=== PATIENT | male | born 1950 | race Caucasian/White ===

== ENCOUNTER 2017-07-23 20:53 | Outpatient (CLI) | payer MEDICARE | END 2017-07-23 20:54 | disposition EMS.NT | LOC: EMS 20:53 | PROVIDERS: ATTEND Surgery | DX: S06.9X1A Unspecified intracranial injury with loss of consciousness of 30 minutes or less, initial encounter (principal); Y04.2XXA Assault by strike against or bumped into by another person, initial encounter; W18.39XA Other fall on same level, initial encounter; Y92.009 Unspecified place in unspecified non-institutional (private) residence as the place of occurrence of the external cause ==

== ENCOUNTER 2017-07-24 00:46 | Emergency (ER) | payer MEDICARE ==
[2017-07-24 01:00] VITALS: BP 120/67
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
--- NOTE | 2017-07-24 01:54 | CT Preliminary Report ---
Exam: CT HEAD W/O IMPRESSION: 1. Negative CT head without contrast. [facility] SITE ID: [id number]
--- NOTE | 2017-07-24 01:55 | CT Report ---
EXAM: CT HEAD EXAM DATE: 07/24/2017 01:21 AM. CLINICAL HISTORY: Fall, head injury with LOC. COMPARISON: None. TECHNIQUE: Multiaxial CT images were obtained from the foramen magnum to the vertex. Reformats: Coron al. IV contrast: None. In accordance with CT protocol optimization, one or more of the following dose reduction techniques w ere utilized for this exam: automated exposure control, adjustment of mA and/or KV based on patient s ize, or use of iterative reconstructive technique. FINDINGS: Parenchyma: No intraparenchymal hemorrhage. No evidence of mass, midline shift, or CT findings of inf arction. Hansen-white differentiation is distinct. There is mild chronic microvascular change in the pe riventricular white matter. This is within normal limits for age. Extraaxial Spaces: Normal for age. No subdural or epidural collections identified. Ventricles: Normal in size and position. Sinuses and Orbits: Imaged paranasal sinuses, orbits, and mastoids show no significant abnormality. Bones: No evidence of fracture or calvarial defect. Other: None. IMPRESSION: 1. Negative CT head without contrast. [facility] Referring Provider Line: [phone] SITE ID: [id number]
--- NOTE | 2017-07-24 02:06 | CT Preliminary Report ---
Exam: CT CERVICAL SPINE W/O IMPRESSION: 1. No evidence of a cervical spine fracture or subluxation. 2. Moderate to severe multilevel cervical spondylosis and degenerative disk disease as detailed above . [facility] SITE ID: [id number]
--- NOTE | 2017-07-24 02:06 | CT Report ---
EXAM: CT CERVICAL SPINE WITHOUT CONTRAST DATE: 07/24/2017 01:21 AM. HISTORY: Fall, neck pain. COMPARISONS: None. TECHNIQUE: Thin-section axial images were acquired of the cervical spine without contrast. Post-proce ssing: Coronal and sagittal reformats. Other: None. In accordance with CT protocol optimization, one or more of the following dose reduction techniques w ere utilized for this exam: automated exposure control, adjustment of mA and/or KV based on patient s ize, or use of iterative reconstructive technique. FINDINGS: Alignment: No scoliosis or spondylolisthesis. Bones: There is no evidence of a cervical spine fracture. An incidental 8 mm hemangioma is noted in t he right side of the C7 vertebral body. There is no destructive bone lesion. Interspace Levels/Facets: Multilevel cervical spondylosis and degenerative disk disease as detailed dayna huynh. C1-C2: There is degenerative change at this level. Predental space is normal. No central canal stenos is. C2-C3: Disk bulge mildly narrows the central canal. There is moderate right facet hypertrophy. No sig nificant foraminal stenosis. C3-C4: Moderate to severe disk narrowing. Posterior osseous ridging and disk bulging moderately narro ws the central canal. Moderate to severe bilateral foraminal stenosis. C4-C5: Mild to moderate disk narrowing. Posterior osseous ridging and disk bulging moderately narrows the central canal. Uncovertebral facet hypertrophy causes moderate to severe right foraminal stenosi s. Left neural foramen is mild to moderately narrowed. C5-C6: Anterior spurring and moderate to severe disk narrowing. Posterior osseous ridging and disk bu lging causes at least moderate central canal stenosis. There is moderate to severe bilateral foramina l stenosis. C6-C7: Anterior spurring and moderate to severe disk narrowing. Posterior endplate spurring and disk bulging causes moderate canal stenosis. There is moderate to severe bilateral foraminal stenosis. C7-T1: No significant central canal stenosis. Neural foramen are moderately narrowed bilaterally. Musculature: Normal. No fatty atrophy. Other: The paravertebral and prevertebral soft tissues are unremarkable. The lung apices are clear. IMPRESSION: 1. No evidence of a cervical spine fracture or subluxation. 2. Moderate to severe multilevel cervical spondylosis and degenerative disk disease as detailed above . [facility] Referring Provider Line: [phone] SITE ID: [id number]
== END 2017-07-24 02:29 | disposition home or self-care (01) ==
LOC: ED 00:46
DX: S00.93XA Contusion of unspecified part of head, initial encounter (principal); I10 Essential (primary) hypertension; E11.9 Type 2 diabetes mellitus without complications; S13.9XXA Sprain of joints and ligaments of unspecified parts of neck, initial encounter; Y04.2XXA Assault by strike against or bumped into by another person, initial encounter; Z79.891 Long term (current) use of opiate analgesic
CPT/HCPCS: 70450; 72125; 99283; 99284

== ENCOUNTER 2018-01-03 22:59 | Outpatient (CLI) | payer MEDICARE | END 2018-01-03 23:00 | disposition EMS.NT | LOC: EMS 22:59 | PROVIDERS: ATTEND Surgery | DX: Z03.89 Encounter for observation for other suspected diseases and conditions ruled out (principal); Z72.89 Other problems related to lifestyle ==

== ENCOUNTER 2018-11-20 21:15 | Outpatient (CLI) | payer MEDICARE | END 2018-11-20 21:16 | disposition EMS.NT | LOC: EMS 21:15 | PROVIDERS: ATTEND Surgery | DX: Z03.89 Encounter for observation for other suspected diseases and conditions ruled out (principal) ==

== ENCOUNTER 2018-12-03 13:33 | Outpatient (CLI) | payer MEDICARE | END 2018-12-03 13:34 | disposition critical access hospital (66) | LOC: EMS 13:33 | PROVIDERS: ATTEND Surgery | DX: I46.9 Cardiac arrest, cause unspecified (principal) | CPT/HCPCS: A0425; A0433 ==

== ENCOUNTER 2018-12-03 13:58 | Emergency (ER) | payer MEDICARE ==
[2018-12-03] MEDS ORDERED: SODIUM CHLORIDE 0.9% 1,000 ML IV ONE ×4 (14:10)
[2018-12-03] MEDS ORDERED: CALCIUM GLUCONATE 1,000 MG in SODIUM CHLORIDE 0.9% 50 ML IV STA (14:12)
[2018-12-03 14:14] LABS: BASOPHILS # (AUTO) 0.1 10^3/uL (0.0-0.1); BASOPHILS % (AUTO) 0.7 %; EOSINOPHILS # (AUTO) 0.2 10^3/uL (0.0-0.7); EOSINOPHILS % (AUTO) 1.4 %; LYMPHOCYTES # (AUTO) 5.4 10^3/uL (1.5-3.5); LYMPHOCYTES % (AUTO) 44.4 %; MEAN CORPUSCULAR HGB CONC 33.3 g/dL (32.0-36.0); MEAN PLATELET VOLUME 8.9 fL (7.4-11.4); MONOCYTES # (AUTO) 0.4 10^3/uL (0.0-1.0); MONOCYTES % (AUTO) 3.2 %; NEUTROPHILS # (AUTO) 5.9 10^3/uL (1.5-6.6); NEUTROPHILS % (AUTO) 48.8 %; PLT - PLATELET COUNT 290 10^3/uL (130-450); RED CELL DISTRIBUTION WIDTH 12.1 % (12.0-15.0); WHITE BLOOD COUNT 12.2 x10^3/uL (4.8-10.8)
[2018-12-03] MEDS ORDERED: MAGNESIUM SULFATE 2 GRAM 2 GM/50 ML BAG IV ONE (14:17)
[2018-12-03 14:22] LABS: MUDS CUTOFF CONCENTRATIONS CUTOFF CONC BELOW:
[2018-12-03 14:29] LABS: BILIRUBIN,URINE NEGATIVE (NEGATIVE); CLARITY,URINE HAZY (CLEAR); GLUCOSE, URINE (UA) NEGATIVE (NEGATIVE); KETONES,URINE (UA) 15 mg/dL (NEGATIVE); LEUKOCYTE ESTERASE, URINE NEGATIVE (NEGATIVE); NITRITE,URINE POSITIVE (NEGATIVE); OCCULT BLOOD,URINE TRACE-INTA (NEGATIVE); PH,URINE 5.5 PH (5.0-7.5); PROTEIN,URINE 100 mg/dL (NEGATIVE); UROBILINOGEN,URINE 0.2 (NORMAL) E.U./dL (NORMAL)
--- NOTE | 2018-12-03 14:29 | ED Physician Documentation ---
History of Present Illness - Stated complaint Stated Complaint: POST CPR - Chief complaint Chief Complaint: Cardiac - History obtained from History obtained from: EMS - History of Present Illness Timing: How many hours ago (1) Pain level max: 0 Pain level now: 0 - Additonal information Additional information: 68-year-old male was found outside unconscious by his daughter and in cardiac arrest. CPR was started with EMS. 5 rounds of CPR, epinephrine and atropine given. Patient was in PEA. Patient is now on a tachyarrhythmia. Does have pulses. Not mentating. He is a alcoholic. Unknown if he is taking his medications at home or not. Review of Systems Unable to obtain: Intubated PD PAST MEDICAL HISTORY - Past Medical History Cardiovascular: Hypertension, Arrhythmia Endocrine/Autoimmune: Type 2 diabetes - Past Surgical History Past Surgical History: Yes - Present Medications Home Medications: Ambulatory Orders Medication Instructions Recorded Confirmed HYDROcod/ACETAM 5/325 [Vicodin 1 tab 04/28/15 04/28/15 5/325] LORazepam [Ativan] 1 mg PO Q4H PRN #20 tablet 04/29/15 - Allergies Allergies/Adverse Reactions: Allergies Allergy/AdvReac Type Severity Reaction Status Date / Time No Known Drug Allergies Allergy Verified 07/24/17 01:01 - Social History Does the pt smoke?: No Smoking Status: Never smoker Does the pt drink ETOH?: Yes Does the pt have substance abuse?: No - Immunizations Immunizations are current?: No - POLST Patient has POLST: No PD ED PE NORMAL - Vitals Vital signs reviewed: Yes - General General: Other (intubated, unresponsive) - HEENT HEENT: Moist mucous membranes - Neck Neck: Supple, no meningeal sign - Cardiac Cardiac: Other (tachycardic, irregular) - Respiratory Respiratory: Other (rhonchi B, equal BS) - Abdomen Abdomen: Soft - Derm Derm: Other (cool, dry) - Extremities Extremities: Other (1+ LE B edema, walking boot on L foot.) - Neuro Neuro: Other (intubated) Results - Vitals Vitals: Vital Signs - 24 hr 12/03/18 12/03/18 12/03/18 13:58 14:04 14:21 Temperature Heart Rate 101 H 137 H Respiratory 20 Rate Blood Pressure 86/63 L 87/64 L O2 Saturation 76 L 87 L 12/03/18 12/03/1812/03/19 14:36 14:41 14:46 Temperature 36.1 C L Heart Rate 103 H 84 113 H Respiratory 23 26 H Rate Blood Pressure 57/46 L 74/37 L 80/69 L O2 Saturation 88 L 88 L 89 L 12/03/18 12/03/18 12/03/18 14:51 14:52 15:02 Temperature 36.1 C L 36.0 C L 35.9 C L Heart Rate 107 H 109 H 104 H Respiratory 16 26 H 16 Rate Blood Pressure 43/34 L 66/34 L 57/37 L O2 Saturation 86 L 85 L 88 L 12/03/18 12/03/18 12/03/18 15:09 15:13 15:17 Temperature 35.8 C L 35.7 C L 35.6 C L Heart Rate 155 H 138 H 147 H Respiratory 42 H 16 22 Rate Blood Pressure 88/61 L 136/107 H 159/111 H O2 Saturation 91 L 95 96 12/03/18 12/03/18 15:22 15:32 Temperature 35.4 C L 35.3 C L Heart Rate 154 H 155 H Respiratory 16 16 Rate Blood Pressure 165/125 H 127/82 H O2 Saturation 95 93 Oxygen O2 Source Mechanical ventilator - EKG (time done) 1412 Rate: Rate (enter#) (145) Rhythm: Other (sinus arrhythmia) Intervals: RBBB - Labs Labs: Laboratory Tests 12/03/18 12/03/18 12/03/18 14:05 14:05 14:05 WBC 12.2 H RBC 4.00 L Hgb 14.0 Hct 42.0 MCV 105.0 H MCH 35.0 H MCHC 33.3 RDW 12.1 Plt Count 290 MPV 8.9 Neut # (Auto) 5.9 Lymph # (Auto) 5.4 H [place] # (Auto) 0.4 Eos # (Auto) 0.2 Baso # (Auto) 0.1 Absolute Nucleated RBC 0.00 Nucleated RBC % 0.0 Manual Slide Review Indicated WBC Morphology Platelet Estimate NORMAL (130-450,000) Platelet Morphology NORMAL APPEARANCE RBC Morph Micro Appear 1+ MACROCYTOSIS Sodium 143 Potassium 3.1 L Chloride 100 L Carbon Dioxide 20 L Anion Gap 23.0 H BUN 13 Creatinine 1.0 Estimated GFR (MDRD) 74 L Glucose 191 H Calcium 8.8 Phosphorus Magnesium Total Bilirubin 0.9 AST 151 H ALT 75 H Alkaline Phosphatase 61 Troponin I High Sens Total Protein 6.8 Albumin 3.3 Globulin 3.5 Albumin/Globulin Ratio 0.9 L Lipase 57 H TSH 1.67 Urine Color Urine Clarity Urine pH Ur Specific Marvin Urine Protein Urine Glucose (UA) Urine Ketones Urine Occult Blood Urine Nitrite Urine Bilirubin Urine Urobilinogen Ur Leukocyte Esterase Urine RBC Urine WBC Ur Squamous Epith Cells Urine Bacteria Ur Microscopic Review Urine Culture Comments Salicylates < 6.0 Urine Opiates Screen Ur Oxycodone Screen Urine Methadone Screen Ur Propoxyphene Screen Acetaminophen < 10 L Ur Barbiturates Screen Ur Tricyclics Screen Ur Phencyclidine Scrn Ur Amphetamine Screen U Methamphetamines Scrn U Benzodiazepines Scrn Urine Cocaine Screen U Cannabinoids Screen Ethyl Alcohol 365.8 12/03/18 12/03/18 12/03/18 14:05 14:05 14:10 WBC RBC Hgb Hct MCV MCH MCHC RDW Plt Count MPV Neut # (Auto) Lymph # (Auto) [place] # (Auto) Eos # (Auto) Baso # (Auto) Absolute Nucleated RBC Nucleated RBC % Manual Slide Review WBC Morphology Platelet Estimate Platelet Morphology RBC Morph Micro Appear Sodium Potassium Chloride Carbon Dioxide Anion Gap BUN Creatinine Estimated GFR (MDRD) Glucose Calcium Phosphorus 5.2 H Magnesium 1.6 L Total Bilirubin AST ALT Alkaline Phosphatase Troponin I High Sens 150.4 H* Total Protein Albumin Globulin Albumin/Globulin Ratio Lipase TSH Urine Color YELLOW Urine Clarity HAZY Urine pH 5.5 Ur Specific Marvin >=1.030 H Urine Protein 100 H Urine Glucose (UA) NEGATIVE Urine Ketones 15 H Urine Occult Blood TRACE-INTA Urine Nitrite POSITIVE H Urine Bilirubin NEGATIVE Urine Urobilinogen 0.2 (NORMAL) Ur Leukocyte Esterase NEGATIVE Urine RBC 0-5 Urine WBC >25 H Ur Squamous Epith Cells NONE SEEN Urine Bacteria Moderate H Ur Microscopic Review INDICATED Urine Culture Comments INDICATED Salicylates Urine Opiates Screen NEGATIVE Ur Oxycodone Screen NEGATIVE Urine Methadone Screen NEGATIVE Ur Propoxyphene Screen NEGATIVE Acetaminophen Ur Barbiturates Screen NEGATIVE Ur Tricyclics Screen NEGATIVE Ur Phencyclidine Scrn NEGATIVE Ur Amphetamine Screen NEGATIVE U Methamphetamines Scrn NEGATIVE U Benzodiazepines Scrn NEGATIVE Urine Cocaine Screen NEGATIVE U Cannabinoids Screen NEGATIVE Ethyl Alcohol - Rads (name of study) cxr Radiology: Prelim report reviewed, EMP read contemporaneously, See rad report (Endotracheal tube in satisfactory appearing position. 2. Nonspecific device resembling lead overlies the left chest. Correlate with known support devices. ) post line cxr Radiology: Prelim report reviewed, EMP read contemporaneously, See rad report ( New right IJ catheter with its tip in the lower SVC. ) head CT Radiology: Prelim report reviewed, EMP read contemporaneously, See rad report (1. No acute intracranial findings. 2. Cerebral atrophy and chronic micro vascular ischemic changes. 3. Status post intubation with endotracheal tube and orogastric tube in the oropharynx. Pooling secretions in the oropharynx extending to the posterior nasopharynx. Consider suctioning. 4. Nasogastric tube. 5. For evaluation of the cervical spine fracture, please see the separately dictated C-spine CT of the same date. ) cervical spine CT Radiology: Prelim report reviewed, EMP read contemporaneously, See rad report (. Moderately displaced type II odontoid fracture in combination with prominent synovial hypertrophy at the atlantoaxial articulation causing moderate to severe spinal canal stenosis at the C1-C2 level. Consider correlation with MRI to assess for cord compression. 2. Malpositioned enteric tube extending into the mainstem bronchus. Endotracheal tube in place. 3. Extensive degenerative spondylosis changes seen throughout the mid and lower cervical spine. ) CT chest Radiology: Prelim report reviewed, EMP read contemporaneously, See rad report (1. There is no pulmonary embolism. 2. Nondisplaced sternal fracture. Nondisplaced to mildly displaced fractures of the right anterior first through fourth ribs and fifth through seventh costochondral junctions in the left anterior second through seventh ribs. 3. No mediastinal hematoma. No pneumothorax or pleural fluid. 4. Dense consolidation which may be atelectatic without airway obstruction involving the posterior segment right upper lobe, the entire right lower lobe, and the posterior basal left lower lobe. There is also some minimal peribronchial airspace opacity in the remainder of the right upper lobe and right middle lobe. 5. Heart size upper normal. Minimal left main and left anterior descending coronary artery calcification. 6. Extensive idiopathic skeletal hyperostosis in the mid to lower thoracic spine. ) Procedures - Intubation Provider: Emergency physician Blade: Glidescope Tube: Size-enter number (7.5), Cuffed, Marked at lips-enter cm (24) Route: Oral Confirmation: Direct visualization, Bilateral breath sounds, No abdominal breath sound, End tidal CO2, Pulse ox, Chest xray Complications: No compications - Central Line Central Line Preparation: Unable to obtain consent, Time out completed, Ultrasound used, Sterile prep and drape Central line location: Right IJ Central line type: Triple lumen Central line aftercare: Chlorhexidine disc placed, Secured, Placement confirmed, No pneumothorax, No complications, Bundle checklist complete, Pt tolerated well PD MEDICAL DECISION MAKING - ED course Complexity details: reviewed old records, reviewed results, re-evaluated patient, considered differential, d/w patient, d/w [facility] consultant ED course: 68-year-old male presents to the emergency department after an unwitnessed cardiac arrest today. His daughter went outside to find him on the ground. Unclear etiology. Had been in a walking boot on the left foot for the past week. Possible PE? His EKG reveals a sinus arrhythmia with a right bundle branch block. Unknown if this is new or old. Given magnesium and calcium here. He has been on amlodipine in the past, unclear if he is taking this. He has had suicide ideation in the past as well. 5 rounds of CPR were performed, then 2 rounds of epinephrine and 2 rounds of atropine. He did achieve ROSC. Given IV fluids here. A central line was placed. Yaakov tube was removed and an endotracheal tube was placed. He is not having purposeful movement. Started on a Levophed drip. After discussion with Dr. Liu, industrial machine system technician at [facility] in [place], the decision was made to start the hypothermia protocol. This was started. CT of the head, neck and chest were performed as well. These images will be pushed to [facility] in [place]. He will not wait here for the results. Upon critical results of the C2 odontoid fracture, I called Dr. Liu and informed her of the results 1640. Patient transferred to [facility], accepting is Dr. Liu. 1515, graciously accepts in transfer. Upon further history from family, the granddaughter went into the home carrying groceries, when she came back outside she found him on the ground, not b reathing. Likely that the odontoid fracture caused damage to the spinal cord and paralyzed his diaphragm causing a respiratory arrest followed by cardiac arrest. No neurological movement in the ER Departure - Departure Disposition: 02 Transfer Acute Care Hosp Clinical Impression: Cardiac arrest Alcoholic intoxication Qualifiers: Complication of substance-induced condition: with unspecified complication Qualified Code(s): F10.929 - Alcohol use, unspecified with intoxication, unspecified UTI (urinary tract infection) Qualifiers: Urinary tract infection type: site unspecified Hematuria presence: without hematuria Qualified Code(s): N39.0 - Urinary tract infection, site not specified C2 cervical fracture Qualifiers: Encounter type: initial encounter Fracture type: closed Fracture morphology: type II dens Fracture alignment: posteriorly displaced Qualified Code(s): S12.111A - Posterior displaced Type II dens fracture, initial encounter for closed fracture Condition: Critical Discharge Date/Time: 12/03/18 16:19
--- NOTE | 2018-12-03 14:30 | XRAY Report ---
Reason: post intubation Procedure Date: 12/03/2018 Accession Number: [id number] / [id number] Procedure: XR - Chest 1 View X-Ray CPT Code: 99131 FULL RESULT: EXAM: CHEST RADIOGRAPHY EXAM DATE: 12/03/2018 02:18 PM. CLINICAL HISTORY: Post intubation. COMPARISON: XR CHEST PA AND LAT 11/28/2008 12:13 PM. TECHNIQUE: 1 view. FINDINGS: Support devices: endotracheal tube overlies midline trachea 4.5 cm above the ko. Lungs/Pleura: Mild subsegmental right perihilar opacity favoring atelectasis. No effusion or extra ventilatory air. Mediastinum: Within exam limitations, the cardiomediastinal contour is normal. Other: No appreciable rib fractures. What appears to be a radiodense lead overlies the left chest. IMPRESSION: 1. Endotracheal tube in satisfactory appearing position. 2. Nonspecific device resembling lead overlies the left chest. Correlate with known support devices. [facility]
[2018-12-03 14:33] LABS: AMPHETAMINE SCREEN,URINE NEGATIVE (NEGATIVE); BENZODIAZEPINES SCREEN, URINE NEGATIVE (NEGATIVE); COCAINE SCREEN URINE NEGATIVE (NEGATIVE); METHADONE SCREEN, URINE NEGATIVE (NEGATIVE); METHAMPHETAMINES SCREEN, URINE NEGATIVE (NEGATIVE); OPIATE SCREEN, URINE NEGATIVE (NEGATIVE); OXYCODONE SCREEN, URINE NEGATIVE (NEGATIVE); PROPOXYPHENE SCREEN, URINE NEGATIVE (NEGATIVE); TRICYCLIC ANTIDEPRESSANT,URINE NEGATIVE (NEGATIVE)
[2018-12-03 14:37] LABS: ACETAMINOPHEN < 10 ug/mL (10-30); ALBUMIN 3.3 g/dL (3.2-5.5); ALBUMIN/GLOBULIN RATIO 0.9 (1.0-2.2); ALKALINE PHOSPHATASE 61 IU/L (42-121); ALT ALANINE AMINOTRANSFERASE 75 IU/L (10-60); AST ASPARTATE AMINOTRANSFERASE 151 IU/L (10-42); BILIRUBIN,TOTAL 0.9 mg/dL (0.2-1.0); BUN - BLOOD UREA NITROGEN 13 mg/dL (6-20); CALCIUM 8.8 mg/dL (8.5-10.3); CARBON DIOXIDE - CO2 20 mmol/L (21-32); CHLORIDE 100 mmol/L (101-111); GFR - MDRD 74 (>89); GLUCOSE 191 mg/dL (70-100); LIPASE 57 U/L (22-51); PLATELET ESTIMATE, MANUAL NORMAL (130-450,000) (NORMAL); PLATELET MORPHOLOGY NORMAL APPEARANCE (NORMAL); RBC MORPHOLOGY (MULTIPLE) 1+ MACROCYTOSIS (NORMAL); SALICYLATE < 6.0 mg/dL; SODIUM 143 mmol/L (135-145); TOTAL PROTEIN 6.8 g/dL (6.7-8.2)
[2018-12-03] MEDS ORDERED: IOVERSOL 320 100 ML VIAL IVP ONE ×2 (14:46→14:47)
[2018-12-03 14:53] LABS: BACTERIA,URINE Moderate /HPF (None Seen); RBC,URINE 0-5 /HPF (0-5); SQUAMOUS EPITHELIAL CELL,UR NONE SEEN (<= Few)
[2018-12-03 14:58] LABS: MAGNESIUM 1.6 mg/dL (1.7-2.8); PHOSPHORUS 5.2 mg/dL (2.5-4.6)
--- NOTE | 2018-12-03 15:28 | XRAY Report ---
Reason: R IJ line Procedure Date: 12/03/2018 Accession Number: [id number] / [id number] Procedure: XR - Chest for Line Placement CPT Code: FULL RESULT: EXAM: CHEST RADIOGRAPHY EXAM DATE: 12/03/2018 03:22 PM. CLINICAL HISTORY: R IJ line. COMPARISON: CHEST 1 VIEW 12/03/2018 2:03 PM. TECHNIQUE: Supine AP view. FINDINGS: Lungs/Pleura: Endotracheal tube 5 cm above the ko, as before. Lung volumes mildly low, as before. Accounting for low lung volumes, lungs are clear. No gross pleural fluid or gross pneumothorax. Mediastinum: Heart size upper normal. Left upper extremity PICC has been removed. There is a new right IJ catheter with its tip in the lower SVC about 1 cm above the superior cavoatrial junction. Other: None. IMPRESSION: 1. New right IJ catheter with its tip in the lower SVC. 2. No gross pneumothorax on this supine study. [facility]
[2018-12-03 15:34] VITALS: BP 127/82
[2018-12-03] MEDS ORDERED: cefTRIAXone 1 GM VIAL IVP STA (15:37)
--- NOTE | 2018-12-03 16:24 | CT Report ---
Reason: fall,cardiac arrest Procedure Date: 12/03/2018 Accession Number: [id number] / [id number] Procedure: CT - HEAD WO CPT Code: FULL RESULT: EXAM: CT HEAD EXAM DATE: 12/03/2018 04:07 PM. CLINICAL HISTORY: Fall, cardiac arrest. COMPARISON: HEAD W/O 07/24/2017 1:21 AM CERVICAL SPINE W/O 12/03/2018 3:47 PM. TECHNIQUE: Multiaxial CT images were obtained from the foramen magnum to the vertex. Reformats: Sagittal and coronal. IV contrast: None. In accordance with CT protocol optimization, one or more of the following dose reduction techniques were utilized for this exam: automated exposure control, adjustment of mA and/or KV based on patient size, or use of iterative reconstructive technique. FINDINGS: Limited by non-traditional planes of imaging. PARENCHYMA: No acute hemorrhage, transcortical infarction or mass. Periventricular and white matter hypointensities are nonspecific but most consistent with chronic microvascular ischemic changes. EXTRA-AXIAL SPACES: No extra-axial fluid collections. No midline shift. VENTRICLES/SULCI: Enlargement of the lateral and third ventricles with prominence of the cortical sulci consistent with mild cerebral volume loss. VASCULAR STRUCTURES: Arterial calcifications consistent with atherosclerosis. SINUSES: Nasogastric tube in place. Otherwise, the visible paranasal sinuses and mastoid air cells are unremarkable. ORBITS: Unremarkable. BONES: No displaced acute calvarial fracture. For evaluation of the cervical spine fracture, please see the separately dictated C-spine CT of the same date. OTHER: Status post intubation with endotracheal tube, orogastric tube and pooling secretions within the oropharynx extending to the posterior nasopharynx. IMPRESSION: 1. No acute intracranial findings. 2. Cerebral atrophy and chronic microvascular ischemic changes. 3. Status post intubation with endotracheal tube and orogastric tube in the oropharynx. Pooling secretions in the oropharynx extending to the posterior nasopharynx. Consider suctioning. 4. Nasogastric tube. 5. For evaluation of the cervical spine fracture, please see the separately dictated C-spine CT of the same date. [facility]
--- NOTE | 2018-12-03 16:32 | CT Report ---
Reason: post arrest Procedure Date: 12/03/2018 Accession Number: [id number] / [id number] Procedure: CT - ANGIO CHEST W/WO CPT Code: FULL RESULT: EXAM: CT ANGIOGRAM CHEST EXAM DATE: 12/03/2018 04:06 PM. CLINICAL HISTORY: Post cardiac arrest. COMPARISON: CHEST 1 VIEW 12/03/2018 2:03 PM CERVICAL SPINE W/O 12/03/2018 3:46 PM CERVICAL SPINE W/O 12/03/2018 3:47 PM. TECHNIQUE: Routine helical imaging was performed through the chest in the pulmonary arterial phase. IV Contrast: OPTI 320 80ML. Reconstructions: Coronal 3-D MIP reconstructions.Sagittal and coronal. In accordance with CT protocol optimization, one or more of the following dose reduction techniques were utilized for this exam: automated exposure control, adjustment of mA and/or KV based on patient size, or use of iterative reconstructive technique. FINDINGS: Pulmonary Arteries: Diagnostic quality: Adequate through the segmental arteries. No evidence for acute or chronic pulmonary emboli. RV/LV is within normal limits. There is no interventricular septal bowing. There is no reflux of contrast material in the IVC. Lungs/Pleura: Moderate fat-containing right Bochdalek hernia. Dense consolidation in the posterior segment right upper lobe, the entire right lower lobe, and the posterior basal left lower lobe with air bronchograms. No central airway obstruction or mucous plugging is identified. There is minimal patchy peribronchial airspace opacity throughout the right upper lobe and right middle lobe. Endotracheal tube is in the mid thoracic trachea. The orogastric tube also is in the upper thoracic trachea. There is no pleural fluid or pneumothorax. Mediastinum: Small amount of injected air in the left innominate vein and right internal mammary vein. Borderline cardiomegaly. Minimal left main and left anterior descending coronary artery calcification. Lower thyroid gland unremarkable. Small amount of air in the upper thoracic esophagus. No lymphadenopathy or mediastinal hematoma. Thoracic Aorta: Only faintly opacified at the time of the scan. No brielle dissection. No aneurysm. Mild calcification. Upper Abdomen: UNREMARKABLE. Fluid in the gastric fundus without abnormal dilation. Other: Marked diffuse idiopathic skeletal hyperostosis in the mid to lower thoracic spine. Nondisplaced transverse mid sternal fracture. Right rib fractures: Anterior second mildly displaced, anterior third nondisplaced, anterior fourth mildly displaced, fifth costochondral junction mildly displaced, sixth costochondral junction nondisplaced, seventh costal cartilage nondisplaced. Left rib fractures: Anterior second nondisplaced, anterior third nondisplaced, anterolateral fourth nondisplaced, anterolateral fifth nondisplaced, anterolateral sixth mildly displaced, anterolateral seventh nondisplaced IMPRESSION: 1. There is no pulmonary embolism. 2. Nondisplaced sternal fracture. Nondisplaced to mildly displaced fractures of the right anterior first through fourth ribs and fifth through seventh costochondral junctions in the left anterior second through seventh ribs. 3. No mediastinal hematoma. No pneumothorax or pleural fluid. 4. Dense consolidation which may be atelectatic without airway obstruction involving the posterior segment right upper lobe, the entire right lower lobe, and the posterior basal left lower lobe. There is also some minimal peribronchial airspace opacity in the remainder of the right upper lobe and right middle lobe. 5. Heart size upper normal. Minimal left main and left anterior descending coronary artery calcification. 6. Extensive idiopathic skeletal hyperostosis in the mid to lower thoracic spine. RADIA
--- NOTE | 2018-12-03 16:38 | CT Report ---
Reason: fall, cardiac arrest Procedure Date: 12/03/2018 Accession Number: [id number] / [id number] Procedure: CT - CERVICAL SPINE WO CPT Code: FULL RESULT: EXAM: CT CERVICAL SPINE WITHOUT CONTRAST DATE: 12/03/2018 04:06 PM. HISTORY: Acute pain due to trauma. COMPARISONS: CERVICAL SPINE W/O 12/03/2018 3:46 PM CERVICAL SPINE W/O 07/24/2017 1:21 AM. TECHNIQUE: Thin-section axial images were acquired of the cervical spine without contrast. Post-processing: Coronal and sagittal reformats. Other: None. In accordance with CT protocol optimization, one or more of the following dose reduction techniques were utilized for this exam: automated exposure control, adjustment of mA and/or KV based on patient size, or use of iterative reconstructive technique. FINDINGS: Alignment: Posterior subluxation of C1 on C2 secondary to underlying odontoid fracture injury below is seen. Bones: Moderately displaced type II odontoid fracture is seen, acute. Fracture fragment demonstrates approximately 8 mm posterior displacement (image 45/8). Interspace Levels/Facets: Extensive degenerative changes are seen throughout the cervical spine secondary to degenerative disk and facet arthropathy changes. There is multilevel mild to moderate central canal narrowing seen throughout the mid and lower cervical spine secondary to endplate spurring. Additionally, there is moderate to severe narrowing at the C1-C2 level secondary to displaced odontoid fracture and prominent partly calcified synovial hypertrophy changes. Musculature: Grossly unremarkable. Other: The visualized neck soft tissue structures are grossly unremarkable. Endotracheal tube extends into the mainstem bronchus. Enteric tube is also seen malpositioned in the mainstem bronchus. Visualized lung apices demonstrate right pleural effusion. There is some patchy peribronchiolar thickening and airspace disease seen. IMPRESSION: 1. Moderately displaced type II odontoid fracture in combination with prominent synovial hypertrophy at the atlantoaxial articulation causing moderate to severe spinal canal stenosis at the C1-C2 level. Consider correlation with MRI to assess for cord compression. 2. Malpositioned enteric tube extending into the mainstem bronchus. Endotracheal tube in place. 3. Extensive degenerative spondylosis changes seen throughout the mid and lower cervical spine. RADIA The above critical result findings were discussed with Gigi Tijerina by Dr. Debbi Pace at 04:37 PM on 12/03/2018.
== END 2018-12-03 16:19 | disposition short-term general hospital (02) ==
LOC: EDUNIT# → EDBD → ED 13:58
DX: I46.9 Cardiac arrest, cause unspecified (principal); S12.111A Posterior displaced Type II dens fracture, initial encounter for closed fracture; X58.XXXA Exposure to other specified factors, initial encounter; Y92.007 Garden or yard of unspecified non-institutional (private) residence as the place of occurrence of the external cause; F10.229 Alcohol dependence with intoxication, unspecified; R00.0 Tachycardia, unspecified; I45.10 Unspecified right bundle-branch block; I45.81 Long QT syndrome; S22.22XA Fracture of body of sternum, initial encounter for closed fracture; S22.43XA Multiple fractures of ribs, bilateral, initial encounter for closed fracture; N39.0 Urinary tract infection, site not specified; M47.812 Spondylosis without myelopathy or radiculopathy, cervical region; I10 Essential (primary) hypertension; E11.9 Type 2 diabetes mellitus without complications
CPT/HCPCS: 31500; 36415; 36556; 51702; 70450; 71045; 71275; 72125; 81001; 83690; 83735; 84100; 84484; 87077; 87086; 87181; 93005; 96365; 96368; 96375; 99285; J7040; Q9967; 80053; 80306; 80307; 80320; 80329; 81003; 84443; 85025; 94770